=== PATIENT | male | born 1950 | race Caucasian/White ===

== ENCOUNTER 2023-02-08 05:08 | Day surgery (SDC) | payer OTHER, BC ==
[2023-02-03 14:15] VITALS: BMI 30.1
[2023-02-08 10:33] VITALS: TEMP 97.9
[2023-02-08 10:46] VITALS: RESP 18
[2023-02-08 11:03] VITALS: BP 120/71; PULSE 70
== END 2023-02-08 11:15 | disposition home or self-care (01) ==
LOC: JASU-ENDO 05:08
PROVIDERS: ATTEND Internal Medicine Gastroenterology
PROC: 0DBN8ZX Excision of Sigmoid Colon, Via Natural or Artificial Opening Endoscopic, Diagnostic (ICD-10-PCS; principal; 2023-02-08 10:00)
DX: Z12.11 Encounter for screening for malignant neoplasm of colon (principal); D12.5 Benign neoplasm of sigmoid colon; K64.8 Other hemorrhoids; K57.30 Diverticulosis of large intestine without perforation or abscess without bleeding; Z80.0 Family history of malignant neoplasm of digestive organs
CPT/HCPCS: 88305-TC